=== PATIENT | female | born 1980 | race African-American/Black ===

== ENCOUNTER 2017-07-06 22:08 | Emergency (ER) | payer SELFPAY ==
[~2017-07-06] VITALS: Ht 172.7 cm; Wt 93.4 kg
[2017-07-07] MEDS ORDERED: IBUPROFEN 600MG TABLET PO ONE (06:45)
[2017-07-07] MEDS ORDERED: CYCLOBENZAPRINE 10MG TABLET PO ONE (06:45)
[2017-07-07 07:34] VITALS: BP 124/79
== END 2017-07-07 07:38 | disposition home or self-care (01) ==
LOC: ER 22:49
DX: M54.5 Low back pain (principal); R07.89 Other chest pain; I10 Essential (primary) hypertension; V89.2XXA Person injured in unspecified motor-vehicle accident, traffic, initial encounter; Y93.89 Activity, other specified; Y92.89 Other specified places as the place of occurrence of the external cause; Y99.8 Other external cause status
CPT/HCPCS: 99283

== ENCOUNTER 2021-06-14 20:18 | Emergency (ER) | payer MEDICAID ==
[~2021-06-14] VITALS: Ht 172.7 cm; Wt 103.4 kg
[2021-06-14 20:22] VITALS: BP 165/80
[2021-06-14] MEDS ORDERED: ACETAMINOPHEN 325MG TABLET PO STA (21:12)
[2021-06-14] MEDS ORDERED: ACETAMINOPHEN 325MG TABLET PO NR (21:12)
[2021-06-14 21:41] LABS: BASOPHILS % 0.4 % (0.0-2.0); EOSINOPHILS % 2.9 % (0.0-5.0); HEMOGLOBIN. 12.9 g/dL (12.0-16.0); MEAN CORPUSCULAR HEMOGLOBIN 29.7 pg (28.0-32.0); MEAN CORPUSCULAR VOLUME 87.8 fL (81.0-99.0); MONOCYTES % 7.4 % (2.0-8.0); NEUTROPHILS % 68.3 % (40.0-76.0); PLATELET 272 x1000/uL (130-400); RED BLOOD CELL COUNT 4.33 mill/uL (4.2-5.4); RED CELL DISTRIBUTION WIDTH 13.8 % (11.6-14.6)
[2021-06-14 21:56] LABS: CHLORIDE 108 mEq/L (98-107)
[2021-06-14 22:26] LABS: B-HCG QUANTITATIVE 70037 mIU/mL (<3)
[2021-06-14 22:48] LABS: CLARITY URINE CLOUDY (CLEAR); COLOR URINE YELLOW (YELLOW); KETONES URINE NEGATIVE (NEGATIVE); LEUKOCYTE ESTERASE URINE NEGATIVE (NEGATIVE); NITRITE URINE NEGATIVE (NEGATIVE); OCCULT BLOOD URINE NEGATIVE (NEGATIVE); PH URINE 5.5 (4.5-8.0); PROTEIN URINE NEGATIVE (NEGATIVE); SPECIFIC GRAVITY URINE 1.008 (1.005-1.030); UROBILINOGEN URINE 0.2 E.U./dL (0.2-1.0)
== END 2021-06-15 01:20 | disposition home or self-care (01) ==
LOC: ER 20:18
DX: O26.891 Other specified pregnancy related conditions, first trimester (principal); D25.9 Leiomyoma of uterus, unspecified; Z3A.13 13 weeks gestation of pregnancy
CPT/HCPCS: 36415; 76801; 80053; 81003; 81025; 84702; 85025; 86850; 86900; 99284

== ENCOUNTER 2022-11-19 23:07 | Emergency (ER) | payer MEDICAID ==
[~2022-11-19] VITALS: Ht 172.7 cm; Wt 107.0 kg
[2022-11-19 23:33] VITALS: TEMP 98.2
[2022-11-19] MEDS ORDERED: ALBUTEROL (0.5%) 2.5MG/0.5ML NEB HHN ONE (23:45)
[2022-11-19 23:52] LABS: CLARITY URINE CLEAR (CLEAR); COLOR URINE YELLOW (YELLOW); GLUCOSE URINE NEGATIVE (NEGATIVE); KETONES URINE NEGATIVE (NEGATIVE); LEUKOCYTE ESTERASE URINE NEGATIVE (NEGATIVE); NITRITE URINE NEGATIVE (NEGATIVE); OCCULT BLOOD URINE NEGATIVE (NEGATIVE); PH URINE 7.5 (4.5-8.0); PROTEIN URINE NEGATIVE (NEGATIVE); SPECIFIC GRAVITY URINE 1.002 (1.005-1.030); UROBILINOGEN URINE 0.2 E.U./dL (0.2-1.0)
[2022-11-19 23:53] LABS: BASOPHILS % 0.5 % (0.0-2.0); EOSINOPHILS % 2.5 % (0.0-5.0); HEMATOCRIT. 39.6 % (36.0-48.0); HEMOGLOBIN. 13.1 g/dL (12.0-16.0); LYMPHOCYTES % 37.8 % (20.0-50.0); MEAN CORPUSCULAR HEMOGLOBIN 28.3 pg (28.0-32.0); MEAN CORPUSCULAR VOLUME 85.6 fL (81.0-99.0); MEAN PLATELET VOLUME 7.4 fl (7.4-10.4); MONOCYTES % 8.7 % (2.0-8.0); NEUTROPHILS % 50.5 % (40.0-76.0); PLATELET 290 x1000/uL (130-400); RED BLOOD CELL COUNT 4.62 mill/uL (4.2-5.4); RED CELL DISTRIBUTION WIDTH 14.3 % (11.6-14.6); WHITE BLOOD COUNT 7.8 x1000/uL (4.5-11.0)
[2022-11-20 00:31] LABS: PARTIAL THROMBOPLASTIN TIME 26.7 sec (23.4-31.0); PROTHROMBIN TIME 10.9 sec (9.6-11.0)
[2022-11-20 00:52] LABS: INDEX HEMOLYSI 1 (1-3); INDEX ICTERIC 1 (1-4); INDEX LIPEMIC 1 (1-3)
[2022-11-20 01:23] VITALS: PULSE 97; RESP 13; O2SAT 97
[2022-11-20 01:27] LABS: CHLORIDE 106 mEq/L (98-107); POTASSIUM 3.5 mEq/L (3.5-5.1); SODIUM 138 mEq/L (136-145)
[2022-11-20 01:28] LABS: ALBUMIN 3.7 g/dL (3.4-5.0); CALCIUM 9.1 mg/dL (8.5-10.1); CARBON DIOXIDE 28 mEq/L (21-32); CREATININE 0.8 mg/dL (0.6-1.3); GLUCOSE 164 mg/dL (70-105); PROTEIN TOTAL 8.5 g/dL (6.0-8.3)
[2022-11-20 01:29] LABS: BILIRUBIN TOTAL 0.7 mg/dL (0.1-1.0); TROPONIN I HIGH SENSITIVITY < 4 ng/L (<54)
[2022-11-20 01:51] LABS: ALANINE AMINOTRANSFERASE 49 IU/L (13-61); ASPARTATE AMINOTRANSFERASE 22 IU/L (15-37)
[2022-11-20] MEDS ORDERED: ACET-2708 MT (02:01)
[2022-11-20] MEDS ORDERED: MED4 MT (02:01)
[2022-11-20] MEDS ORDERED: ALBU6.7H15 INH (02:01)
[2022-11-20 02:02] VITALS: BP 125/68; PULSE 96; RESP 15
[2022-11-20 02:06] LABS: NT PRO B-TYPE NATRIURETIC PEP 7 pg/mL (5-125); UREA NITROGEN BLOOD 10 mg/dL (7-21)
== END 2022-11-20 02:18 | disposition home or self-care (01) ==
LOC: ER 23:07
DX: J40 Bronchitis, not specified as acute or chronic (principal); E11.9 Type 2 diabetes mellitus without complications; I10 Essential (primary) hypertension; Z98.890 Other specified postprocedural states; Z20.822 Contact with and (suspected) exposure to COVID-19
CPT/HCPCS: 80053; 81003; 82962; 83880; 85025; 85610; 85730; 84484; 36415; 71045; 94640; 93005; 99285; 87426; C9803; Z7610 ×3

== ENCOUNTER 2023-02-24 18:39 | Emergency (ER) | payer MEDICAID ==
[~2023-02-24] VITALS: Ht 172.7 cm; Wt 106.1 kg
[~2023-02-24 18:39] MED LIST: ACET-2708 MT; ALBU6.7H15 INH; MED4 MT
[2023-02-24 18:49] VITALS: O2SAT 98
[2023-02-24 20:12] LABS: BASOPHILS % 0.6 % (0.0-2.0); EOSINOPHILS % 1.8 % (0.0-5.0); HEMATOCRIT. 39.3 % (36.0-48.0); LYMPHOCYTES % 36.9 % (20.0-50.0); MEAN CORPUSCULAR HEMOGLOBIN 29.2 pg (28.0-32.0); MEAN CORPUSCULAR HGB CONC 33.1 g/dL (31.0-37.0); MEAN CORPUSCULAR VOLUME 88.3 fL (81.0-99.0); MEAN PLATELET VOLUME 7.9 fl (7.4-10.4); MONOCYTES % 7.2 % (2.0-8.0); NEUTROPHILS % 53.5 % (40.0-76.0); PLATELET 301 x1000/uL (130-400); RED BLOOD CELL COUNT 4.45 mill/uL (4.2-5.4); RED CELL DISTRIBUTION WIDTH 13.7 % (11.6-14.6); WHITE BLOOD COUNT 6.6 x1000/uL (4.5-11.0)
[2023-02-24 20:23] LABS: ALANINE AMINOTRANSFERASE 33 IU/L (10-49); ALBUMIN 4.3 g/dL (3.2-4.8); ASPARTATE AMINOTRANSFERASE 24 IU/L (<34); BILIRUBIN TOTAL 0.5 mg/dL (0.1-1.0); CALCIUM 9.8 mg/dL (8.7-10.4); CARBON DIOXIDE 27 mEq/L (21-32); CHLORIDE 104 mEq/L (98-107); CREATININE 0.8 mg/dL (0.6-1.0); GLUCOSE 128 mg/dL (70-105); POTASSIUM 3.9 mEq/L (3.5-5.1); PROTEIN TOTAL 7.9 g/dL (6.0-8.3); SODIUM 139 mEq/L (136-145); UREA NITROGEN BLOOD 8 mg/dL (9-23)
[2023-02-24 20:24] LABS: TROPONIN I HIGH SENSITIVITY < 4 ng/L (3.0-34)
[2023-02-25 05:43] VITALS: BP 159/97; PULSE 84; RESP 18; TEMP 98.2
[2023-02-25 09:15] LABS: HCG SCREEN NEGATIVE
== END 2023-02-25 11:00 | disposition home or self-care (01) ==
LOC: ER 18:39
DX: R07.9 Chest pain, unspecified (principal); E11.9 Type 2 diabetes mellitus without complications; I10 Essential (primary) hypertension; Z98.890 Other specified postprocedural states
CPT/HCPCS: 36415; 71045; 71275; 80053; 81025; 84484; 84702; 84703; 85025; 93005; 99285

== ENCOUNTER 2023-10-09 08:15 | Emergency (ER) | payer MEDICAID ==
[~2023-10-09] VITALS: Ht 172.7 cm; Wt 100.0 kg
[~2023-10-09 08:15] MED LIST changes: -MED4 MT; +METH4TAB95 MT
[2023-10-09 08:25] VITALS: O2SAT 98
[2023-10-09] MEDS ORDERED: DIPHENHYDRAMINE 50MG CAPSULE PO ONE (09:00)
[2023-10-09] MEDS: PREDNISONE 20MG TABLET PO ONE (10:04)
[2023-10-09] MEDS: DIPHENHYDRAMINE 25MG CAPSULE PO NR (10:39)
[2023-10-09] MEDS ORDERED: EPIN0.3P3 IM (12:12)
[2023-10-09] MEDS ORDERED: P50 MT (12:12)
[2023-10-09] MEDS ORDERED: B50 MT (12:12)
[2023-10-09 12:56] VITALS: BP 133/81; PULSE 84; RESP 18; TEMP 36.78072; O2SAT 98
== END 2023-10-09 13:20 | disposition home or self-care (01) ==
LOC: ER 08:15
DX: T78.49XA Other allergy, initial encounter (principal); E11.9 Type 2 diabetes mellitus without complications; Z98.890 Other specified postprocedural states; Z79.899 Other long term (current) drug therapy; X58.XXXA Exposure to other specified factors, initial encounter; Y93.89 Activity, other specified; Y92.89 Other specified places as the place of occurrence of the external cause; Y99.8 Other external cause status
CPT/HCPCS: 99283; 81025; Q0163; J7512